=== PATIENT | female | born 1995 | race Caucasian/White ===

== ENCOUNTER 2021-07-04 03:59 | Inpatient (IN) ==
[2021-07-04] MEDS ORDERED: Famotidine 20 MG/2 ML VIAL IVP PRN (04:34)
[2021-07-04] MEDS ORDERED: Naloxone 0.4 MG/ML INJ IVP PRN (04:34)
[2021-07-04] MEDS ORDERED: *HR* Nalbuphine 10 MG/ML AMPUL IV PRN (04:34)
[2021-07-04] MEDS ORDERED: Lidocaine 1% 20 ML MDV INFILT PRN (04:34)
[2021-07-04] MEDS ORDERED: Ondansetron 4 MG/2 ML VIAL IVP PRN (04:34)
[2021-07-04] MEDS ORDERED: Azithromycin 500 MG in 0.9 % Sodium Chloride 250 ML IVPB PRN (04:34)
[2021-07-04] MEDS ORDERED: Metoclopramide 10 MG/2 ML VIAL IVP PRN (04:34)
[2021-07-04] MEDS ORDERED: miSOPROStoL 25 MCG TABLET PO PRN (04:34)
[2021-07-04 04:57] LABS: Basophils % 0.3 %; Eosinophils # 0.1 K/mcL (0.0-0.6); Hematocrit 40.7 % (35.3-44.9); Hemoglobin 13.7 g/dL (11.5-15.4); Immature Granulocytes % 1.6 % (0-4); Lymphocytes # 2.8 K/mcL (0.6-4.6); Lymphocytes % 25.7 %; Mean Corpuscular HGB Conc 33.7 g/dL (31.6-35.5); Mean Corpuscular Hemoglobin 34.1 pg (28.0-33.3); Mean Corpuscular Volume 101.2 fL (83.0-100.0); Mean Platelet Volume 11.6 fL (9.4-12.4); Monocytes % 9.4 %; Neutrophils # 6.8 K/mcL (1.6-8.9); Platelet Count 184 K/mcL (140-400); Red Blood Count 4.02 M/mcL (3.82-4.97); Red Cell Distribution Width 12.8 % (11.5-14.5); White Blood Count 10.9 K/mcL (4.3-11.1)
[2021-07-04 04:58] LABS: Amphetamine Screen,Urine Negative ng/mL (Cutoff=1000); Barbiturate Screen,Urine Negative ng/mL (Cutoff=200); Benzodiazepines Screen,Urine Negative ng/mL (Cutoff=200); Cannabinoid Screen,Urine Negative ng/mL (Cutoff = 50); Cocaine Screen,Urine Negative ng/mL (Cutoff= 300); Opiate Screen,Urine Negative ng/mL (Cutoff=300); Phencyclidine Screen,Urine Negative ng/mL (Cutoff=25)
[2021-07-04] MEDS ORDERED: Penicillin G Potassium 5,000,000 UNIT in 0.9 % Sodium Chloride Mini Bag 100 ML IVPB ONE (05:00)
[2021-07-04] MEDS: miSOPROStoL 25 MCG TABLET PO PRN ×2 (05:10→09:25)
[2021-07-04 05:30] LABS: Influenza A PCR Negative (Negative); Influenza B PCR Negative (Negative); Resp. Syncytial Virus PCR Negative (Negative)
[2021-07-04 05:34] LABS: SARS-CoV-2 by PCR (In House) Negative (Negative)
[2021-07-04] MEDS: Penicillin G Potassium 2,500,000 UNIT/105 ML MLS IVPB SCH ×4 (08:50→19:53)
[2021-07-04] MEDS ORDERED: Oxytocin 20 units/ LR 1000 mL 20 UNIT/1,000 ML BAG IVC ONE ×2 (13:13→21:56)
[2021-07-04] MEDS ORDERED: Oxytocin 20 units/ LR 1000 mL 20 UNIT/1,000 ML BAG IVC SCH (13:15)
[2021-07-04] MEDS: Ringers Solution, Lactated 1,000 ML IVC SCH ×2 (15:04→17:30)
[2021-07-04] MEDS ORDERED: EPHEDrine 50 MG/ML VIAL IVP PRN (16:44)
[2021-07-04] MEDS ORDERED: Epidural Premix (fent/bupiv) 110 ML EP SCH (16:45)
[2021-07-04] MEDS ORDERED: Lidocaine/EPI 1:200k 2% PF 20 ML VIAL ONE ×2 (21:44→22:03)
[2021-07-04] MEDS ORDERED: Ondansetron 4 MG/2 ML VIAL ONE (21:44)
[2021-07-04] MEDS ORDERED: Acetaminophen IV 1,000 MG/100 ML BAG IVPB ONE (21:44)
[2021-07-04] MEDS ORDERED: Ketorolac 30 MG/ML VIAL ONE (21:44)
[2021-07-04] MEDS ORDERED: EPHEDrine 50 MG/ML VIAL ONE (21:45)
[2021-07-04] MEDS ORDERED: *HR* Morphine Sulfate/PF 10 MG/10 ML AMPUL ONE (21:56)
[2021-07-05] MEDS ORDERED: Oxytocin 20 units/ LR 1000 mL 20 UNIT/1,000 ML BAG IVC SCH ×2 (01:11)
[2021-07-05] MEDS ORDERED: Rho Immune Globulin 1,500 UNIT SYRINGE IM ONE ×3 (01:11→09:31)
[2021-07-05] MEDS ORDERED: Ondansetron 4 MG/2 ML VIAL IVP PRN (01:11)
[2021-07-05] MEDS ORDERED: Naloxone 0.4 MG/ML INJ IVP PRN (01:11)
[2021-07-05] MEDS ORDERED: Ringers Solution, Lactated 1,000 ML IVC SCH (01:11)
[2021-07-05] MEDS ORDERED: Metoclopramide 10 MG/2 ML VIAL IVP PRN (01:11)
[2021-07-05] MEDS: Ibuprofen 600 MG TABLET PO SCH ×3 (06:11→19:42)
[2021-07-05] MEDS: Acetaminophen 325 MG TABLET PO SCH ×3 (06:41→19:42)
[2021-07-05 07:45] LABS: Basophils % 0.1 %; Eosinophils % 0.1 %; Hematocrit 32.6 % (35.3-44.9); Immature Granulocytes % 0.7 % (0-4); Lymphocytes # 1.4 K/mcL (0.6-4.6); Lymphocytes % 9.9 %; Mean Corpuscular HGB Conc 33.7 g/dL (31.6-35.5); Mean Corpuscular Hemoglobin 34.5 pg (28.0-33.3); Mean Corpuscular Volume 102.2 fL (83.0-100.0); Mean Platelet Volume 11.8 fL (9.4-12.4); Monocytes # 0.9 K/mcL (0.0-1.3); Monocytes % 6.3 %; Neutrophils # 11.4 K/mcL (1.6-8.9); Platelet Count 160 K/mcL (140-400); Red Blood Count 3.19 M/mcL (3.82-4.97); Red Cell Distribution Width 12.9 % (11.5-14.5); Segmented Neutrophils % 82.9 %; White Blood Count 13.7 K/mcL (4.3-11.1)
[2021-07-05] MEDS: metroNIDAZOLE 500 MG TABLET PO SCH ×3 (08:33→19:42)
[2021-07-05] MEDS: cephALEXin 500 MG CAPSULE PO SCH ×2 (08:34→19:42)
[2021-07-05] MEDS: Simethicone 80 MG TAB.CHEW PO PRN (08:34)
[2021-07-05] MEDS: Prenatal Vit/FA 1 EACH TABLET PO SCH (08:34)
[2021-07-05] MEDS: *HR* OxyCODONE/APAP 5/325 TABLET PO PRN ×3 (09:57→21:36)
[2021-07-06] MEDS: *HR* OxyCODONE/APAP 5/325 TABLET PO PRN ×6 (00:59→19:13)
[2021-07-06] MEDS: Acetaminophen 325 MG TABLET PO SCH ×4 (02:35→22:28)
[2021-07-06] MEDS: Ibuprofen 600 MG TABLET PO SCH ×4 (02:35→22:28)
[2021-07-06] MEDS: metroNIDAZOLE 500 MG TABLET PO SCH ×3 (09:15→20:08)
[2021-07-06] MEDS: Simethicone 80 MG TAB.CHEW PO PRN (09:16)
[2021-07-06] MEDS: Prenatal Vit/FA 1 EACH TABLET PO SCH (09:16)
[2021-07-06] MEDS: cephALEXin 500 MG CAPSULE PO SCH ×3 (09:16→20:09)
[2021-07-07] MEDS: *HR* OxyCODONE/APAP 5/325 TABLET PO PRN ×5 (02:17→22:38)
[2021-07-07] MEDS: Acetaminophen 325 MG TABLET PO SCH ×2 (04:24→11:58)
[2021-07-07] MEDS: Ibuprofen 600 MG TABLET PO SCH ×3 (04:24→18:53)
[2021-07-07] MEDS: Prenatal Vit/FA 1 EACH TABLET PO SCH (08:09)
[2021-07-07] MEDS: Simethicone 80 MG TAB.CHEW PO PRN (16:11)
[2021-07-08] MEDS: Acetaminophen 325 MG TABLET PO SCH ×2 (02:24→08:37)
[2021-07-08] MEDS: Ibuprofen 600 MG TABLET PO SCH ×2 (02:24→08:37)
[2021-07-08 07:46] VITALS: BP 107/76; PULSE 75; TEMP 97.8; O2SAT 99
[2021-07-08] MEDS: *HR* OxyCODONE/APAP 5/325 TABLET PO PRN ×2 (08:37→13:22)
[2021-07-08] MEDS: Prenatal Vit/FA 1 EACH TABLET PO SCH (08:37)
== END 2021-07-08 16:07 | disposition home or self-care (01) | DRG 788 ==
LOC: 1NENULAB 03:59 → 1NENUOBS 07-05 01:10
PROVIDERS: ADMIT Obstetrics & Gynecology; ATTEND Obstetrics & Gynecology